=== PATIENT | male | born 1935 | race Caucasian/White ===

== ENCOUNTER 2017-12-25 08:30 | Outpatient (RCR) | payer OTHER | END 2017-12-28 | disposition home or self-care (01) | LOC: PTY 08:30 | PROVIDERS: ATTEND Internal Medicine | DX: M54.2 Cervicalgia (principal); M54.9 Dorsalgia, unspecified ==

== ENCOUNTER 2018-01-15 08:30 | Outpatient (RCR) | payer OTHER | END 2018-01-27 | disposition home or self-care (01) | LOC: PTY 08:30 | PROVIDERS: ATTEND Internal Medicine | DX: M54.2 Cervicalgia (principal); M54.9 Dorsalgia, unspecified ==

== ENCOUNTER 2018-02-05 08:30 | Outpatient (RCR) | payer OTHER | END 2018-02-27 | disposition home or self-care (01) | LOC: PTY 08:30 | PROVIDERS: ATTEND Internal Medicine | DX: M54.2 Cervicalgia (principal); M54.9 Dorsalgia, unspecified ==